=== PATIENT | female | born 1995 | race Caucasian/White ===

== ENCOUNTER 2017-11-12 08:14 | Emergency (ER) | payer OTHER ==
[2017-11-12 08:17] VITALS: BP 97/57; BMI 21.2
--- NOTE | 2017-11-12 09:09 | DR.GENAD ---
HPI - PCP Primary Care Physician: NFD - HPI Comment HPI Comment: WORSE TODAY. COUGHING, PRODUCTIVE YELLOW SPUTUM. NASAL CONGESTION, POST NASAL DRIP AND HEADACHE. SORETHROAT ALSO. FEVER AT HOME. - Complaint/Symptoms Chief Complaint Doctors Comments: HEAD COLD, SORE THROAT AND EAR ACHE TIMES FIVE DAYS. Chief Complaint:: PT. C/O BILATERAL EAR ACHE X 1 WEEK AND A SORE THROAT. - Nurses notes reviewed Nurses Notes Review: Yes - Source History Provided: Patient - Mode of Arrival Mode of Arrival: Ambulatory - Timing Onset of Chief Complaint: 11/07/17 Came on: Suddenly - Duration Duration: Constant Duration: Days - Severity Severity: Moderate PMH - PMH Past Medical History: No Past Surgical History: Yes Surgical History: Tonsillectomy - Family History History of Family Medical Conditions: No - Social History Does patient currently use any type of tobacco product: No Have you used tobacco products in the last 12 months: No Type of Tobacco Use: None Does any household member use tobacco: No Alcohol Use: Occasionally Do you use any recreational Drugs:: No Lives With: Alone Lives Where: Home - infectious screening In the last 2 months have you had wt loss of >10#?: NO Have you had fever, night sweats or hemotysis?: No Have you traveled outside the country in the last 6 months?: No Isolation: Standard ROS - Review of Systems Constitutional: Fever, Fatigue Eyes: negative: Eye Pain, Discharge ENTM: Ear Pain, Nose Discharge, Nose Congestion, Throat Pain. negative: Ear Discharge, Hearing Loss Respiratoy: Productive Cough. negative: Short of Breath, Wheezing Cardiovascular: No Symptoms Reported Gastrointestinal/Abdominal: No Symptoms Reported Genitourinary: No Symptoms Reported Neurological: Headache, Dizziness Musculoskeletal: No Symptoms Reported Integumentary: No Symptoms Reported Hematologic/Lymphatic: No Symptoms Reported Endocrine: No Symptoms Reported All Other Systems: Reviewed and Negative PE - Vital Signs Vitals: Temperature 97.8 F Pulse Rate 94 Respiratory Rate 17 Blood Pressure 97/57 O2 Sat by Pulse Oximetry 98 - General Limitations: No Limitations General Appearance: Alert - Head Head Exam: Normal Inspection - Eyes Eye exam: Normal Appearance, PERRL. negative: Scleral Icterus, Conjunctival Injection - ENT ENT Exam: Normal External Ear Exam. negative: Normal Oropharynx, TM's Normal Bilaterally External Ear Exam: Normal External Inspection, External Tenderness. negative: Mastoid Tenderness TM/Canal Exam: Bilateral Bulging Nose Exam: Sinus Tenderness Mouth Exam: Normal Inspection Throat Exam: Tonsillar Erythema. negative: Tonsillomegaly, Tonsillar Exudate - Neck Neck Exam: Trachea Midline - Chest Chest Inspection: Symmetric Chest Wall Rise - Respiratory Respiratory Exam: Normal Lung Sounds Bilat Respiratory Exam: Bilateral Clear to Auscultation - Cardiovascular Cardiovascular Exam: Regular Rate, Normal Rhythm, Normal Heart Sounds - Abdominal Exam Abdominal Exam: Normal Bowel Sounds, Soft. negative: Tenderness - Extremities Extremities Exam: Normal Inspection - Back Back Exam: Normal Inspection - Neurologic Neurological Exam: Alert, Oriented X3 - Psychiatric Psychiatric Exam: Normal Affect, Normal Mood - Skin Skin Exam: Normal Color MDM - Differential Diagnosis Differential Diagnosis: SINUSITIS, BRONCHITIS, SORETHROAT Course - Treatment Treatment: SEE ORDERS. - Education/Counseling Education/Counseling: Patient, Education Educated On: Diagnosis, Needs for Follow Up ROR - Labs Reviewed Laboratory Results Reviewed?: Yes Laboratory: Streptococcus Screen Negative (NEGATIVE) 11/12/17 08:36 - Diagnosis Discharge Problem: Sore throat, Bronchitis Acute sinusitis Qualifiers: Sinusitis location: unspecified location Recurrence: not specified as recurrent Qualified Code(s): J01.90 - Acute sinusitis, unspecified - Discharge Plan Condition: Stable Prescriptions: Amoxicillin [Amoxil 875 mg] 875 mg PO Q12H #20 tab Benzonatate [TESSALON PERLES *] 200 mg PO TID PRN #30 cap PRN Reason: Cough Cetirizine HCl [Zyrtec Tab 10 mg] 10 mg PO DAILY #30 tab - Follow ups/Referrals Follow ups/Referrals: NFD,None [Primary Care Provider] - 3 days - Instructions Instructions: Sinusitis, Adult, [id number], Acute Bronchitis, [id number], Pharyngitis, [id number] Additional Instructions: RETURN TO ED IF WORSE.
== END 2017-11-12 09:38 | disposition home or self-care (01) ==
LOC: ER 08:23
DX: J01.80 Other acute sinusitis (principal); J40 Bronchitis, not specified as acute or chronic; J02.9 Acute pharyngitis, unspecified
CPT/HCPCS: 87070; 87880; 99282

== ENCOUNTER 2024-02-02 01:29 | Inpatient (IN) ==
[2024-02-02 01:47] VITALS: BMI 22.1
[2024-02-02 02:00] LABS: AMNISURE ROM TEST THERE IS A RUPTURE (NO RUPTURE)
[2024-02-02] MEDS: OXYTOCIN 20 UNIT/1,000 ML-NS 20 UNIT/1,000 ML PLAST..BAG IV SCH (02:05)
[2024-02-02] MEDS: PITOCIN IVP ONE (02:05)
[2024-02-02] MEDS: NUBAIN INJ 20 MG AMP IVP PRN (02:15)
[2024-02-02] MEDS ORDERED: REGLAN INJ 10 MG VIAL IVP PRN (02:19)
[2024-02-02 02:27] LABS: EOSINOPHILS # (AUTO) 0.1 x10^3/uL (0.0-0.2); HEMATOCRIT 32.9 % (36.0-47.0); MEAN CORPUSCULAR HEMOGLOBIN 28.7 pg (27.0-34.0); MEAN CORPUSCULAR HGB CONC 33.4 g/dL (33.0-35.0); MEAN CORPUSCULAR VOLUME 85.8 fL (80.0-100.0); NEUTROPHILS # (AUTO) 6.2 x10^3/uL (2.2-4.8); RED BLOOD COUNT 3.84 X10^6/uL (3.5-5.4)
[2024-02-02 02:31] LABS: BASOPHILS % (AUTO) 0.5 % (0.2-1.0); LYMPHOCYTES # (AUTO) 1.5 X10^3/uL (1.3-2.9); LYMPHOCYTES % (AUTO) 17.2 % (21.0-51.0); MEAN PLATELET VOLUME 9.1 fL (7.4-11.0); MONOCYTES # (AUTO) 0.8 x10^3/uL (0.3-0.8); MONOCYTES % (AUTO) 9.1 % (0.0-13.0); NEUTROPHILS % (AUTO) 72.2 % (42.0-75.0); PLATELET COUNT 184 X10^3/uL (150.0-450.0); RED CELL DISTRIBUTION WIDTH 13.7 % (11.6-16.5); WHITE BLOOD COUNT 8.7 X10^3/uL (3.6-10.0)
[2024-02-02 02:36] LABS: ALANINE AMINOTRANSFERASE 16 Units/L (12-78); ALBUMIN 2.6 g/dL (3.4-5.0); ALKALINE PHOSPHATASE 71 Units/L (46-116); ASPARTATE AMINO TRANSFERASE 20 Units/L (15-37); BLOOD UREA NITROGEN 10 mg/dL (7-18); CALCIUM 8.9 mg/dL (8.5-10.1); CARBON DIOXIDE 22.3 mmol/L (21-32); CHLORIDE 99 mmol/L (98-107); CREATININE 0.81 mg/dL (0.55-1.02); GLUCOSE 102 mg/dL (65-99); POTASSIUM 3.5 mmol/L (3.5-5.1); SODIUM 135 mmol/L (136-145); TOTAL PROTEIN 6.8 g/dL (6.4-8.2); eGFR NON BLACK RACES > 60 (>60)
--- NOTE | 2024-02-02 02:43 | DR.PREG ---
HPI Time seen Time Seen by Provider: 02/02/24 01:45 PCP Primary Care Physician: KIERAN HPI Comment HPI Comment: Patient in labor. Chief Complaint Chief Complaint Doctors Comments: Patient is 28-year-old female who is 38 weeks 4 days having contractions every 3 to 4 minutes. Chief Complaint:: PT C/O LABOR PAIN EVERY 3 TO 4 MINUTES WITH ROM COVID-19 Coronavirus risk:travel/contact w/high risk person: No Has patient experienced Coronavirus symptoms: No Nurses Notes Reviewed Nurses Notes Review: Yes Source History Provided: Patient Mode of Arrival Mode of Arrival: Wheelchair Context : 4 Para: 3 Abortions: 1 Last menstrual period:: 05/03/23. Gestational Age in Weeks: 38 EDC: 02/11/26 Blood Type: Neg Location Location: pain: Diffuse Quality Pain: Cramping Timing Onset of Chief Complaint: 02/02/24 PMH PMH Past Medical History: Yes Past Medical History: Migraines and Headaches Past Surgical History: Yes Surgical History: Tonsillectomy Family History History of Family Medical Conditions: Yes Family Medical History: Diabetes Mellitus, Cancer, [place], Coronary Artery Disease, Heart Failure, Sudden Cardiac and Hypertension Social History Does patient currently use any type of tobacco product: No Have you used tobacco products in the last 12 months: No Type of Tobacco Use: None Does any household member use tobacco: No Alcohol Use: None Do you use any recreational Drugs:: No Lives With: Family Lives Where: Home Travel Risk Coronavirus risk:travel/contact w/high risk person: No Has patient experienced Coronavirus symptoms: No Infectious screening In the last 2 months have you had wt loss of >10#?: NO Have you had fever, night sweats or hemotysis?: No Have you traveled outside the country in the last 6 months?: No Isolation: Standard ROS Review of Systems Constitutional: No Symptoms Reported; negative Fever Eyes: No Symptoms Reported ENTM: No Symptoms Reported; negative Nose Discharge or Nose Congestion Respiratoy: No Symptoms Reported; negative Moist Cough, Short of Breath or Wheezing Cardiovascular: No Symptoms Reported; negative Chest Pain or Edema Gastrointestinal/Abdominal: Abdominal Pain; negative Diarrhea, Nausea or Vomiting Genitourinary: No Symptoms Reported; negative Dysuria Neurological: No Symptoms Reported; negative Headache, Weakness or Dizziness Musculoskeletal: No Symptoms Reported; negative Muscle Pain Integumentary: No Symptoms Reported Hematologic/Lymphatic: No Symptoms Reported Endocrine: No Symptoms Reported Psychiatric: No Symptoms Reported All Other Systems: Reviewed and Negative PE Vital Signs Vitals: Vital Signs Temperature 98.2 F Pulse Rate 78 Pulse Rate 80 Pulse Rate 77 Respiratory Rate 18 Blood Pressure 129/81 O2 Sat by Pulse Oximetry 99 O2 Sat by Pulse Oximetry 100 O2 Sat by Pulse Oximetry 99 General Limitations: No Limitations General Appearance: Alert and In No Apparent Distress Head Head Exam: Normal Inspection Eyes Eye exam: Normal Appearance and PERRL; negative Scleral Icterus or Conjunctival Injection ENT ENT Exam: Normal Exam, Normal Oropharynx, Normal External Ear Exam and TM's Normal Bilaterally Neck Neck Exam: Normal Inspection and Trachea Midline; negative Tenderness Chest Chest Inspection: Normal Inspection and Symmetric Chest Wall Rise; negative Tenderness Respiratory Respiratory Exam: Normal Lung Sounds Bilat; negative Accessory Muscle Use, Chest Wall Tenderness or Respiratory Distress Respiratory Exam: Bilateral: Clear to Auscultation Cardiovascular Cardiovascular Exam: Regular Rate, Normal Rhythm and Normal Heart Sounds; negative Systolic Murmur or Diastolic Murmur Abdominal Exam Abdominal Exam: Normal Inspection, Normal Bowel Sounds, Soft and Tenderness Back Back Exam: Normal Inspection; negative (R) CVA Tenderness or (L) CVA Tenderness Extremeties Extremities Exam: Normal Inspection and Normal Capillary Refill Neurologic Neurological Exam: Alert and Oriented X3; negative Motor Sensory Deficit Psychiatric Psychiatric Exam: Normal Affect Skin Skin Exam: Warm and Intact MDM Differential Diagnosis Differential Diagnosis: Vaginal delivery (Active labor) COURSE Treatment Treatment: Present at delivery of patient in active labor awaiting OB team arrival. The baby head was in the vaginal vault when I arrived. The head was and patient deliver within five minute. OB team arrive and deliver the placenta. Dr Rivera, patient OB present. The baby appears normal with normal score of 9. Baby came out crying. ROR Labs Reviewed Laboratory Results Reviewed?: Yes 02/02/24 05:03 02/02/24 01:45 Laboratory: WBC 8.7 X10^3/uL (3.6-10.0) 02/02/24 01:45 RBC 3.84 X10^6/uL (3.5-5.4) 02/02/24 01:45 Hgb 11.0 g/dL (12.0-16.0) L 02/02/24 01:45 Hct 32.9 % (36.0-47.0) L 02/02/24 01:45 MCV 85.8 fL (80.0-100.0) 02/02/24 01:45 MCH 28.7 pg (27.0-34.0) 02/02/24 01:45 MCHC 33.4 g/dL (33.0-35.0) 02/02/24 01:45 RDW 13.7 % (11.6-16.5) 02/02/24 01:45 Plt Count 184 X10^3/uL (150.0-450.0) 02/02/24 01:45 MPV 9.1 fL (7.4-11.0) 02/02/24 01:45 Neut % (Auto) 72.2 % (42.0-75.0) 02/02/24 01:45 Lymph % (Auto) 17.2 % (21.0-51.0) L 02/02/24 01:45 [place] % (Auto) 9.1 % (0.0-13.0) 02/02/24 01:45 Eos % (Auto) 1.0 % (0.9-2.9) 02/02/24 01:45 Baso % (Auto) 0.5 % (0.2-1.0) 02/02/24 01:45 Neut # (Auto) 6.2 x10^3/uL (2.2-4.8) H 02/02/24 01:45 Lymph # (Auto) 1.5 X10^3/uL (1.3-2.9) 02/02/24 01:45 [place] # (Auto) 0.8 x10^3/uL (0.3-0.8) 02/02/24 01:45 Eos # (Auto) 0.1 x10^3/uL (0.0-0.2) 02/02/24 01:45 Baso # (Auto) 0.0 X10^3/uL (0.0-0.1) 02/02/24 01:45 Absolute Nucleated RBC 0.1 /100WBC 02/02/24 01:45 Sodium 135 mmol/L (136-145) L 02/02/24 01:45 Corrected Sodium TNP 02/02/24 01:45 Potassium 3.5 mmol/L (3.5-5.1) 02/02/24 01:45 Chloride 99 mmol/L (98-107) 02/02/24 01:45 Carbon Dioxide 22.3 mmol/L (21-32) 02/02/24 01:45 BUN 10 mg/dL (7-18) 02/02/24 01:45 Creatinine 0.81 mg/dL (0.55-1.02) 02/02/24 01:45 Est GFR (MDRD) Af Amer > 60 (>60) 02/02/24 01:45 Est GFR (MDRD) Non-Af > 60 (>60) 02/02/24 01:45 Glucose 102 mg/dL (65-99) H 02/02/24 01:45 Calcium 8.9 mg/dL (8.5-10.1) 02/02/24 01:45 Corrected Calcium 10.0 mg/dL (8.5-10.1) 02/02/24 01:45 Total Bilirubin 0.20 mg/dL (0.2-1.0) 02/02/24 01:45 AST 20 Units/L (15-37) 02/02/24 01:45 ALT 16 Units/L (12-78) 02/02/24 01:45 Alkaline Phosphatase 71 Units/L (46-116) 02/02/24 01:45 Total Protein 6.8 g/dL (6.4-8.2) 02/02/24 01:45 Albumin 2.6 g/dL (3.4-5.0) L 02/02/24 01:45 Globulin 4.2 g/dL (2.5-4.5) 02/02/24 01:45 Albumin/Globulin Ratio 0.6 Ratio (1.1-2.1) L 02/02/24 01:45 Placental [id number] There is a rupture (NO RUPTURE) 02/02/24 01:35 RPR Nonreactive (NONREACTIVE) 02/02/24 01:45 HIV 1&2 Antibody Non reactive (NONREACTIVE) 02/02/24 01:45 HIV P24 Antigen Non reactive (NONREACTIVE) 02/02/24 01:45 Blood Type A NEGATIVE 02/02/24 01:45 Antibody Screen Negative 02/02/24 01:45 Opioid Opioid Risk Tool Age (Crow box if 16-45): No History of Preadolescent Sexual Abuse: No Total: 0 Total Score Risk Category: Low Risk Copyright: Sam VEGA predicting aberrant behaviors Discharge Plan Diagnosis Discharge Problem: Normal spontaneous vaginal delivery, Encounter for full-term uncomplicated delivery, Delivery of fetus, completely normal case Discharge Plan Patient Disposition: 09 ADMITTED INPATIENT Condition: Stable
[2024-02-02] MEDS: NUBAIN INJ 200 MG VIAL MULTIDOSE ONE (03:16)
[2024-02-02] MEDS: ILOTYCIN OPHTH OINT ONE (03:17)
[2024-02-02] MEDS: PITOCIN ONE (03:17)
[2024-02-02] MEDS ORDERED: MOTRIN TAB 800 MG PO PRN (03:25)
[2024-02-02] MEDS ORDERED: MILK OF MAGNESIA PO PRN (03:25)
[2024-02-02] MEDS ORDERED: AMBIEN PO PRN (03:25)
[2024-02-02] MEDS: MOTRIN TAB 800 MG PO PRN (04:19)
[2024-02-02] MEDS: ADACEL or BOOSTRIX TDaP VACCINE IM ONE (04:39)
[2024-02-02 04:59] LABS: APPEARANCE,URINE CLEAR (CLEAR); BILIRUBIN,URINE NEGATIVE (NEGATIVE); BLOOD/HEMOGLOBIN,URINE 4+ (NEGATIVE); COLOR,URINE PALE YELLOW (YELLOW); GLUCOSE, URINE NEGATIVE (NEGATIVE); KETONES,URINE NEGATIVE (NEGATIVE); LEUKOCYTE ESTERASE ,URINE NEGATIVE (NEGATIVE); NITRITES,URINE NEGATIVE (NEGATIVE); PROTEIN,URINE 1+ (NEGATIVE); RBC,URINE 20-30 /HPF (0-3); UROBILINOGEN,URINE NORMAL (NORMAL)
[2024-02-02 05:00] LABS: BACTERIA,URINE NEGATIVE /HPF (NEGATIVE); SQUAMOUS EPITHELIAL CELL,UR RARE /HPF (NEGATIVE)
[2024-02-02] MEDS: DERMOPLAST PAIN RELIEF SPRAY TOP PRN (05:31)
[2024-02-02 06:36] LABS: HEMOGLOBIN 9.6 g/dL (12.0-16.0)
[2024-02-02] MEDS: PRENATAL PLUS PO SCH (09:39)
[2024-02-02] MEDS: MOTRIN TAB 600 MG PO PRN (11:11)
[2024-02-02] MEDS: HYPERRHO S/D (or RHOGAM) IM PRN (11:17)
[2024-02-02] MEDS: PROTONIX TAB 40 MG PO SCH (19:48)
[2024-02-03 08:07] VITALS: RESP 18
[2024-02-03 11:50] VITALS: BP 116/70; PULSE 70; TEMP 97.1; O2SAT 99
== END 2024-02-03 12:55 | disposition home or self-care (01) | DRG 807 ==
LOC: ER 01:29 → LD 02:00 → MED/SURG 03:25
PROVIDERS: ADMIT Specialist; ATTEND Specialist